=== PATIENT | male | born 1980 | race Caucasian/White ===

== ENCOUNTER 2021-09-23 23:35 | Emergency (ER) | payer BC ==
[~2021-09-23] VITALS: Ht 165.1 cm; Wt 80.7 kg
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
--- NOTE | 2021-09-24 02:58 | NUR ---
shun paper work given to pt. pt shun in stable condition
[2021-09-24 03:08] VITALS: BP 128/76
== END 2021-09-24 02:53 | disposition home or self-care (01) ==
LOC: ER 23:39
DX: M54.2 Cervicalgia (principal); M25.512 Pain in left shoulder; M79.662 Pain in left lower leg; M25.572 Pain in left ankle and joints of left foot; V49.49XA Driver injured in collision with other motor vehicles in traffic accident, initial encounter; Y93.89 Activity, other specified; Y92.413 State road as the place of occurrence of the external cause; Y99.8 Other external cause status
CPT/HCPCS: 70450-TC; 71045-TC; 72050-TC; 73610-TC